=== PATIENT | male | born 1955 | race Caucasian/White ===

== ENCOUNTER 2017-02-01 18:40 | Inpatient (IN) | payer OTHER ==
[~2017-02-01] VITALS: Ht 177.8 cm; Wt 61.7 kg
[2017-02-01 20:00] LABS: BASOPHIL 0 % (0-2); EOSINOPHIL 0 % (0-5); HCT 38.4 % (42.0-52.0); HGB 12.4 g/dl (13.2-18.0); LYMPHOCYTE 6.6 % (15-48); MCH 26.6 pg (25.0-31.0); MCHC 32.3 g/dL (32.0-36.0); MCV 82.2 fL (78.0-100.0); MPV 11.1 fL (6.0-9.5); NEUTROPHIL 87.4 % (41-80); PLT 600 K/uL (150-400); RBC 4.67 M/uL (4.70-6.00); RDW 15.6 % (11.5-14.0)
[2017-02-01 20:06] LABS: INR 1.36 (0.9-1.2); PROTHROMBIN TIME 16.3 SECONDS (11.7-14.0); PTT 28.5 SECONDS (23.2-31.4); WBC 20.7 K/uL (4.0-10.5)
[2017-02-01 20:12] LABS: BILIRUBIN 2+ mg/dL (NEGATIVE); BLOOD 1+ Ery/uL (NEGATIVE); CLARITY HAZY (CLEAR); COLOR YELLOW (YELLOW); GLUCOSE (U) NORMAL (NORMAL); KETONE (U) TRACE mg/dL (NEGATIVE); LEUKOCYTES NEGATIVE Leu/uL (NEGATIVE); NITRITE NEGATIVE (NEGATIVE); PROTEIN 2+ mg/dL (NEGATIVE); SPECIFIC GRAVITY >=1.030 (1.001-1.030); UROBILINOGEN 0.2 mg/dL (0.2-1.0)
[2017-02-01 20:13] LABS: ALBUMIN 3.6 g/dL (3.4-4.8); BILIRUBIN - TOTAL 0.6 mg/dL (0.1-1.0); GLOBULIN (CALCULATION) 4.1 g/dL (2.2-4.2); MAGNESIUM 3.04 mg/dL (1.40-2.10); PHOSPHORUS 6.3 mg/dL (2.7-4.5); POTASSIUM 5.4 mmol/L (3.5-5.1); TOTAL PROTEIN 7.7 g/dL (6.4-8.3)
[2017-02-01 20:15] LABS: CKMB 2.45 ng/mL (0.97-4.94); TROPONIN T 0.063 ng/mL
[2017-02-01 20:18] LABS: AMORPHOUS URATES CRYSTALS MODERATE; BACTERIA 1+; MUCOUS TRACE
[2017-02-01 20:22] LABS: FT4 (FREE T4) 1.29 ng/dL (0.93-1.70); TSH (THYROID STIM HORMONE) 0.224 uIU/mL (0.270-4.200)
[2017-02-01 20:31] LABS: LACTIC ACID 2.8 mmol/L (0.5-2.2)
[2017-02-01 20:33] LABS: CREATININE 8.4 mg/dL (0.7-1.2)
[2017-02-02 02:31] LABS: CKMB 3.56 ng/mL (0.97-4.94); TROPONIN T 0.052 ng/mL
[2017-02-02 06:50] LABS: CREATININE 7.9 mg/dL (0.7-1.2)
[2017-02-02 08:20] LABS: AMPHETAMINES NEGATIVE (NEGATIVE); BENZODIAZEPINES NEGATIVE (NEGATIVE); COCAINE NEGATIVE (NEGATIVE); MARIJUANA (THC) NEGATIVE (NEGATIVE)
[2017-02-02 08:21] LABS: BARBITURATES NEGATIVE (NEGATIVE); METHADONE NEGATIVE (NEGATIVE); TRICYCLIC ANTIDEPRESSANT NEGATIVE (NEGATIVE)
[2017-02-02 08:30] LABS: BASOPHIL 0.2 % (0-2); EOSINOPHIL 0.2 % (0-5); HCT 35.6 % (42.0-52.0); HGB 11.4 g/dl (13.2-18.0); LYMPHOCYTE 10.1 % (15-48); MCH 26.9 pg (25.0-31.0); MONOCYTE 6.5 % (0-12); MPV 11.2 fL (6.0-9.5); PLT 492 K/uL (150-400); RBC 4.24 M/uL (4.70-6.00); RDW 15.7 % (11.5-14.0)
[2017-02-02 08:36] LABS: WBC 22.8 K/uL (4.0-10.5)
[2017-02-02 08:53] LABS: ALBUMIN 3.2 g/dL (3.4-4.8); BILIRUBIN - TOTAL 0.5 mg/dL (0.1-1.0); CKMB 3.64 ng/mL (0.97-4.94); GLOBULIN (CALCULATION) 3.4 g/dL (2.2-4.2); POTASSIUM 4.5 mmol/L (3.5-5.1); TOTAL PROTEIN 6.6 g/dL (6.4-8.3); TROPONIN T 0.051 ng/mL
[2017-02-02 09:05] LABS: CREATININE 7.3 mg/dL (0.7-1.2)
[2017-02-02 15:39] LABS: CREATININE 6.7 mg/dL (0.7-1.2); POTASSIUM 4.9 mmol/L (3.5-5.1)
[2017-02-02 17:04] LABS: URINE CREATININE 42.3 mg/dL (40-278); URINE TOTAL PROTEIN-RANDOM 29.6 mg/dL
[2017-02-03 04:34] LABS: HCT 35.4 % (42.0-52.0); HGB 11.1 g/dl (13.2-18.0); MCH 26.6 pg (25.0-31.0); MCHC 31.4 g/dL (32.0-36.0); MCV 84.9 fL (78.0-100.0); MPV 11.3 fL (6.0-9.5); RBC 4.17 M/uL (4.70-6.00); RDW 15.8 % (11.5-14.0)
[2017-02-03 04:41] LABS: WBC 18.3 K/uL (4.0-10.5)
[2017-02-03 04:53] LABS: ALBUMIN 3.2 g/dL (3.4-4.8); BILIRUBIN - TOTAL 0.4 mg/dL (0.1-1.0); CREATININE 5.5 mg/dL (0.7-1.2); GLOBULIN (CALCULATION) 2.7 g/dL (2.2-4.2); MAGNESIUM 2.25 mg/dL (1.40-2.10); PHOSPHORUS 4.6 mg/dL (2.7-4.5); POTASSIUM 4.6 mmol/L (3.5-5.1); TOTAL PROTEIN 5.9 g/dL (6.4-8.3)
[2017-02-03 16:24] LABS: CKMB 4.13 ng/mL (0.97-4.94); TROPONIN T 0.031 ng/mL
== END 2017-02-03 20:15 | disposition other institution (70) | DRG 871 ==
LOC: FER 18:40 → FTCU 21:30
PROVIDERS: Emergency Medicine Emergency Medical Services; Internal Medicine; ADMIT Internal Medicine
DX: A41.9 Sepsis, unspecified organism (principal); J18.9 Pneumonia, unspecified organism; G93.41 Metabolic encephalopathy; E43 Unspecified severe protein-calorie malnutrition; N17.9 Acute kidney failure, unspecified; A09 Infectious gastroenteritis and colitis, unspecified; R65.20 Severe sepsis without septic shock; E83.52 Hypercalcemia; E87.5 Hyperkalemia; R91.8 Other nonspecific abnormal finding of lung field; I48.0 Paroxysmal atrial fibrillation; R00.1 Bradycardia, unspecified; E86.0 Dehydration; Z86.73 Personal history of transient ischemic attack (TIA), and cerebral infarction without residual deficits; I10 Essential (primary) hypertension; F17.210 Nicotine dependence, cigarettes, uncomplicated; R62.7 Adult failure to thrive
CPT/HCPCS: 36415; 70450; 71010; 71250; 76770; 80048; 80053; 80305; 81001; 82550; 82553; 82565; 82570; 83519; 83605; 83735; 83970; 84100; 84145; 84156; 84300; 84439; 84443; 84484; 84520; 85025; 85610; 85730; 86334; 86335; 87040; 87088; 93005; G0480; J0456; J0692; J1644; J2270; J2405